=== PATIENT | female | born 2000 | race African-American/Black ===

== ENCOUNTER 2021-12-03 23:12 | Emergency (ER) | payer SELFPAY ==
[~2021-12-03] VITALS: Ht 165.1 cm; Wt 57.0 kg
[2021-12-04] MEDS ORDERED: BACITRACIN ZINC OINT UDPKT TOP ONE (00:15)
[2021-12-04] MEDS ORDERED: HYDROCODONE/ACETAMINOPHEN 5/325MG TABLET PO ONE (00:15)
[2021-12-04] MEDS ORDERED: LIDOCAINE HCL/PF 1% 10 MG/ML 5ML VIAL INFIL ONE (00:15)
[2021-12-04] MEDS ORDERED: TETANUS, DIPHTHERIA, PERTUSSIS VAC/PF 0.5ML (>10YR OLD) IM ONE (00:15)
[2021-12-04] MEDS ORDERED: LIDOCAINE HCL 1% 20ML VIAL (Pyxis) INJ INFIL SCH (01:00)
[2021-12-04] MEDS ORDERED: HYDROCODONE/ACETAMINOPHEN 5/325MG TABLET PO SCH (02:00)
[2021-12-04] MEDS ORDERED: BACITRACIN ZINC OINT UDPKT TOP SCH (02:00)
[2021-12-04 02:37] VITALS: BP 121/82
== END 2021-12-04 05:08 | disposition left against medical advice (07) ==
LOC: ER 23:12
DX: S06.890A Other specified intracranial injury without loss of consciousness, initial encounter (principal); S01.01XA Laceration without foreign body of scalp, initial encounter; S60.512A Abrasion of left hand, initial encounter; J45.909 Unspecified asthma, uncomplicated; Y08.89XA Assault by other specified means, initial encounter; Y93.9 Activity, unspecified; Y92.89 Other specified places as the place of occurrence of the external cause; Z91.19 Patient's noncompliance with other medical treatment and regimen; Z98.890 Other specified postprocedural states
CPT/HCPCS: 12001; 12011; 70450; 73110; 73130; 81025; 99284; J3490

== ENCOUNTER 2022-05-18 03:44 | Emergency (ER) | payer MEDICAID ==
[~2022-05-18] VITALS: Ht 162.6 cm; Wt 63.9 kg
[2022-05-18] MEDS ORDERED: ACETAMINOPHEN 500MG TABLET PO ONE (04:45)
[2022-05-18] MEDS ORDERED: LIDOCAINE HCL/PF 1% 10 MG/ML 5ML VIAL INFIL ONE (04:45)
[2022-05-18] MEDS ORDERED: BACITRACIN ZINC OINT UDPKT TOP ONE (04:45)
[2022-05-18] MEDS ORDERED: LIDOCAINE HCL 1% 10 MG/ML 10ML VIAL INJ NR (05:30)
[2022-05-18] MEDS ORDERED: BO1 TP (05:35)
[2022-05-18] MEDS ORDERED: IBUP-2029 MT (05:35)
[2022-05-18 06:44] VITALS: BP 116/74
== END 2022-05-18 06:47 | disposition home or self-care (01) ==
LOC: ER 03:44
DX: S01.511A Laceration without foreign body of lip, initial encounter (principal); S00.81XA Abrasion of other part of head, initial encounter; S03.2XXA Dislocation of tooth, initial encounter; J45.909 Unspecified asthma, uncomplicated; F12.10 Cannabis abuse, uncomplicated; Z90.49 Acquired absence of other specified parts of digestive tract; W01.190A Fall on same level from slipping, tripping and stumbling with subsequent striking against furniture, initial encounter; Y93.89 Activity, other specified; Y92.018 Other place in single-family (private) house as the place of occurrence of the external cause
CPT/HCPCS: 12013; 70450; 99284; J3490; Z7610

== ENCOUNTER 2022-06-14 21:31 | Emergency (ER) | payer MEDICAID ==
[~2022-06-14 21:31] MED LIST: BO1 TP; IBUP-2029 MT
== END 2022-06-14 21:43 | disposition left against medical advice (07) ==
LOC: ER 21:31
DX: Z53.21 Procedure and treatment not carried out due to patient leaving prior to being seen by health care provider (principal)